=== PATIENT | male | born 1985 | race Native Hawaiian/Other Pacific Islander ===

== ENCOUNTER 2020-08-30 17:20 | Observation (INO) | payer OTHER ==
[~2020-08-30] VITALS: Ht 188 cm; Wt 124.3 kg
[2020-08-30 17:26] VITALS: BP 135/64; TEMP 98.8
[2020-08-30 18:46] LABS: PLATELET COUNT 252 K/uL (142-355)
[2020-08-30 18:59] LABS: POTASSIUM 3.8 mmol/L (3.6-5.2)
[2020-08-30 19:34] LABS: PARTIAL THROMBOPLASTIN TIME 26.1 SECONDS (24.5-33.6)
[2020-08-30 23:00] VITALS: BP 129/84; TEMP 98; Ht 188 cm; Wt 124.3 kg
[2020-08-30 23:54] VITALS: BP 129/84; TEMP 98
[2020-08-31 04:00] VITALS: BP 128/78; TEMP 98.1
[2020-08-31 08:00] VITALS: BP 123/77; TEMP 97.7
[2020-08-31 08:22] LABS: PLATELET COUNT 227 K/uL (142-355)
[2020-08-31 08:49] LABS: POTASSIUM 4.2 mmol/L (3.6-5.2)
[2020-08-31 12:00] VITALS: BP 120/80; TEMP 98.1
[2020-08-31 16:00] VITALS: BP 121/82; TEMP 97.7
[2020-08-31 20:00] VITALS: BP 135/73; TEMP 98.5
[2020-08-31 23:40] VITALS: BP 136/74; TEMP 97.7
[2020-09-01 04:00] VITALS: BP 123/70; TEMP 98.1
[2020-09-01 08:00] VITALS: BP 132/84; TEMP 98.4
[2020-09-01 10:01] LABS: PLATELET COUNT 288 K/uL (142-355)
[2020-09-01 12:00] VITALS: BP 133/86; TEMP 97.6
[2020-09-01 16:00] VITALS: BP 140/81; TEMP 98.3
[2020-09-01 20:13] VITALS: BP 139/82; TEMP 98.1
[2020-09-02 00:16] VITALS: BP 133/80; TEMP 97.7
[2020-09-02 04:15] VITALS: BP 163/78; TEMP 97.7
[2020-09-02 05:39] LABS: PLATELET COUNT 253 K/uL (142-355)
[2020-09-02 08:00] VITALS: BP 126/67; TEMP 97.7
[2020-09-02 12:00] VITALS: BP 143/85; TEMP 97.8
[2020-09-02 16:00] VITALS: BP 130/81; TEMP 98.1
[2020-09-02 20:00] VITALS: BP 130/87; TEMP 97.7
[2020-09-03] VITALS: BP 122/77; TEMP 97.6
[2020-09-03 04:00] VITALS: BP 125/88; TEMP 97.6
[2020-09-03 06:44] LABS: PLATELET COUNT 285 K/uL (142-355)
[2020-09-03] MEDS ORDERED: HYDR5TAB9 PO (07:59)
[2020-09-03] MEDS ORDERED: CEFDINIR300 MG PO (07:59)
[2020-09-03] MEDS ORDERED: DOXYCYCL HYC100 M2 PO (07:59)
[2020-09-03 08:00] VITALS: BP 116/64; TEMP 98.2
== END 2020-09-03 09:50 | disposition home or self-care (01) ==
LOC: ED 17:20 → MED/SURG 19:20
PROVIDERS: Hospitalist; ADMIT Internal Medicine Endocrinology, Diabetes & Metabolism
DX: L03.113 Cellulitis of right upper limb (principal); E66.8 Other obesity; D72.828 Other elevated white blood cell count
CPT/HCPCS: 36415; 80048; 80202; 82948; 83605; 85027; 85610; 85651; 85730; 86140; 87040; 96365; 96366; 96367; 96372; 96375; 99220; 99284; G0378; J1170; J1650; J1885; J2405; J2543; J3370